=== PATIENT | male | born 2000 | race Caucasian/White ===

== ENCOUNTER 2021-09-13 14:42 | Observation (INO) | payer BC, OTHER, SELFPAY ==
[2021-09-13] MEDS ORDERED: Neomycin-Polymyxin 1 ML AMP ONE (16:53)
[2021-09-13] MEDS ORDERED: Bupivacaine PF 0.5% 30 ML VIAL ONE (16:53)
[2021-09-13] MEDS ORDERED: Bacitracin Zinc Ointment 30 gm TUBE ONE (16:53)
[2021-09-13] MEDS ORDERED: Fentanyl 100 MCG/2 ML VIAL ONE (16:54)
[2021-09-13] MEDS ORDERED: Ketorolac Tromethamine 30 MG/ML VIAL ONE (17:24)
[2021-09-13] MEDS ORDERED: Lidocaine 1% PF 5 ML VIAL ONE (17:24)
[2021-09-13] MEDS ORDERED: Dexamethasone 20 MG/5 ML VIAL ONE (17:24)
[2021-09-13] MEDS ORDERED: PROPOFOL 200 MG/20 ML VIAL ONE (17:24)
[2021-09-13] MEDS ORDERED: Ondansetron PF 4 MG/2 ML Vial ONE (17:24)
[2021-09-13] MEDS ORDERED: Fentanyl 100 MCG/2 ML VIAL SLOW IVP PRN (17:34)
[2021-09-13] MEDS ORDERED: Ondansetron PF 4 MG/2 ML Vial IVP PRN (17:34)
[2021-09-13] MEDS ORDERED: HYDROcodone/Acetaminophen 10/325 mg Tablet PO PRN (17:34)
[2021-09-13] MEDS ORDERED: Promethazine HCl 25 MG/ML VIAL IM PRN (17:34)
[2021-09-13] MEDS ORDERED: HYDROcodone/Acetaminophen 5/325 mg Tablet PO PRN (17:34)
[2021-09-13] MEDS ORDERED: Morphine 4 MG/ML VIAL SLOW IVP PRN (17:34)
[2021-09-13] MEDS ORDERED: traMADol HCl 50 MG TAB PO PRN (17:34)
[2021-09-13] MEDS ORDERED: Acetaminophen 325 MG TAB PO PRN (17:34)
[2021-09-13] MEDS ORDERED: Meperidine HCl/PF 25 MG/ML VIAL IM PRN (17:36)
[2021-09-13] MEDS ORDERED: Ketorolac Tromethamine 30 MG/ML VIAL IVP PRN (17:36)
[2021-09-13] MEDS ORDERED: Communication Order-Pharmacy FS SCH (17:45)
[2021-09-13 18:14] LABS: Amphetamine Not Detected (NotDetected); Barbiturates Screen Not Detected (NotDetected); Benzodiazepine Screen Not Detected (NotDetected); Cocaine Metabolite Screen Not Detected (NotDetected); Methadone Not Detected (NotDetected); Methamphetamine Not Detected (NotDetected); Opiate Screen Not Detected (NotDetected); Oxycodone Screen Not Detected (NotDetected); Phencyclidine (PCP) Not Detected (NotDetected); THC/Cannabinoid Screen Not Detected (NotDetected); Tricyclic Screen Not Detected (NotDetected)
[2021-09-13] MEDS ORDERED: TETANUS AND DIPHTHERIA TOX/PF 0.5 ML DISP.SYRIN IM SCH (20:00)
[2021-09-13 21:08] VITALS: BMI 27.8
[2021-09-13] MEDS: Ketorolac Tromethamine 30 MG/ML VIAL IVP SCH ×2 (22:07→23:32)
[2021-09-13] MEDS: Vancomycin 1.5 GRAM/300 ML BAG 1.5 GM in Premix Bag 1 BAG IVPB SCH (22:24)
[2021-09-13] MEDS: Sodium Chloride 0.9% 1,000 ML IV SCH (22:29)
[2021-09-13] MEDS: Aspirin 81 mg Enteric Coated Tablet PO SCH (22:42)
[2021-09-14] MEDS: Sodium Chloride 0.9% 1,000 ML IV SCH ×2 (05:19→15:05)
[2021-09-14 06:00] LABS: Anion Gap 14 mmol/L (10-20); BUN (Urea Nitrogen) 12 mg/dL (8.9-20.6); Calc. Creatinine Clearance 196 mL/min (70-130); Calcium 9.1 mg/dL (7.8-10.44); Carbon Dioxide 23 mmol/L (22-29); Chloride 105 mmol/L (98-107); Glucose 129 mg/dL (70-105); Sodium 137 mmol/L (136-145)
[2021-09-14 06:15] LABS: Vancomycin, Trough 11.1 ug/mL
[2021-09-14] MEDS: Vancomycin 1.5 GRAM/300 ML BAG 1.5 GM in Premix Bag 1 BAG IVPB SCH ×2 (06:18→14:26)
[2021-09-14] MEDS: Ketorolac Tromethamine 30 MG/ML VIAL IVP SCH ×3 (06:18→17:47)
[2021-09-14] MEDS: Aspirin 81 mg Enteric Coated Tablet PO SCH (08:47)
[2021-09-14 16:41] VITALS: BP 121/56; TEMP 98.4
== END 2021-09-14 18:49 | disposition home or self-care (01) ==
LOC: SDC 14:42 → SJJU 20:12
PROVIDERS: ADMIT Orthopaedic Surgery Hand Surgery; ATTEND Orthopaedic Surgery Hand Surgery
PROC: 0PBT0ZZ Excision of Right Finger Phalanx, Open Approach (ICD-10-PCS; principal; 2021-09-13)
PROC: 0PST04Z Reposition Right Finger Phalanx with Internal Fixation Device, Open Approach (ICD-10-PCS; 2021-09-13)
PROC: 0PST04Z Reposition Right Finger Phalanx with Internal Fixation Device, Open Approach (ICD-10-PCS; 2021-09-13)
PROC: 0LQ70ZZ Repair Right Hand Tendon, Open Approach (ICD-10-PCS; 2021-09-13)
PROC: 0LQ70ZZ Repair Right Hand Tendon, Open Approach (ICD-10-PCS; 2021-09-13)
PROC: 0HQQXZZ Repair Finger Nail, External Approach (ICD-10-PCS; 2021-09-13)
DX: S62.630B Displaced fracture of distal phalanx of right index finger, initial encounter for open fracture (principal); S62.620B Displaced fracture of middle phalanx of right index finger, initial encounter for open fracture; S66.320A Laceration of extensor muscle, fascia and tendon of right index finger at wrist and hand level, initial encounter; Z88.1 Allergy status to other antibiotic agents; W26.8XXA Contact with other sharp object(s), not elsewhere classified, initial encounter; Y99.0 Civilian activity done for income or pay
CPT/HCPCS: 36415; 76000; 80048; 80202; 80306; 96365; 96366; 96375; 96376; G0378; J1100; J1885; J2405; J2704; J3010; J3370; J7050; S0020